=== PATIENT | male | born 1980 | race Two or more races ===

== ENCOUNTER 2017-04-14 21:37 | Emergency (ER) | payer MEDICAID ==
[~2017-04-14] VITALS: Ht 175.3 cm; Wt 86.2 kg
[2017-04-14 21:48] VITALS: BP 155/79
== END 2017-04-14 22:25 | disposition home or self-care (01) ==
LOC: ER 21:38
DX: L60.0 Ingrowing nail (principal); L03.031 Cellulitis of right toe; F17.200 Nicotine dependence, unspecified, uncomplicated
CPT/HCPCS: 11730; 99285; A4606; A6402; Z7610